=== PATIENT | male | born 1960 | race Caucasian/White ===

== ENCOUNTER 2017-07-06 08:02 | Emergency (ER) | payer MEDICARE ==
[~2017-07-06] VITALS: Ht 188 cm; Wt 76.6 kg
[2017-07-06] MEDS ORDERED: SODIUM CHLORIDE FLUSH 10ML SYR IVF ONE (08:30)
[2017-07-06] MEDS ORDERED: ONDANSETRON 2MG/ML, 2ML IVPush ONE (08:30)
[2017-07-06] MEDS ORDERED: MORPHINE SULFATE 4 MG/ML, 1ML IVPush PRN (08:30)
[2017-07-06] MEDS ORDERED: SODIUM CHLORIDE 0.9% 1,000ML IVBOLUS ONE (08:30)
[2017-07-06 08:40] LABS: HEMATOCRIT 39.9 % (39.2-51.8); HEMOGLOBIN 13.3 g/dL (13.7-18.0); WHITE BLOOD COUNT 8.3 x10^3/uL (3.4-10)
[2017-07-06 08:51] LABS: BLOOD UREA NITROGEN 14 mg/dL (7-18)
[2017-07-06] MEDS ORDERED: DIPH,PERTUSS(ACELL),TET VAC/PF 0.5 ML IM-VACC ONE ×2 (09:30→10:02)
[2017-07-06] MEDS ORDERED: CLINDAMYCIN PMX 900MG/50ML 50 ML IV ONE (09:30)
[2017-07-06] MEDS ORDERED: morphine SULFATE 10 MG/ML, 1ML ONE (10:01)
[2017-07-06] MEDS ORDERED: ONDANSETRON 2MG/ML, 2ML ONE (10:01)
[2017-07-06] MEDS ORDERED: CLINDAMYCIN PMX 900MG/50ML 50 ML ONE (10:02)
[2017-07-06 12:24] VITALS: BP 148/101
== END 2017-07-06 12:27 ==
LOC: ED 08:19
DX: L03.113 Cellulitis of right upper limb (principal)
CPT/HCPCS: 36415; 73130; 80048; 82040; 85025; 90471; 90715; 96365; 96375; 99285; J2405; J7030

== ENCOUNTER 2017-07-07 18:23 | Emergency (ER) | payer MEDICARE ==
[~2017-07-07] VITALS: Ht 188 cm; Wt 75.0 kg
[2017-07-07 18:30] VITALS: BP 156/83
[2017-07-07] MEDS ORDERED: CEFAZOLIN 1,000 MG IM ONE (19:00)
[2017-07-07] MEDS ORDERED: HYDROcodone/APAP 5/325 TABLET PO ONE (19:00)
[2017-07-07] MEDS ORDERED: CEFTRIAXONE 1,000 MG ONE (19:04)
[2017-07-07] MEDS ORDERED: CEFAZOLIN 1,000 MG ONE (19:07)
[2017-07-07] MEDS ORDERED: HYDROcodone/APAP 5/325 TABLET ONE (19:07)
== END 2017-07-07 20:41 | disposition home or self-care (01) ==
LOC: ED 18:41
DX: L03.113 Cellulitis of right upper limb (principal); G89.11 Acute pain due to trauma; W22.8XXA Striking against or struck by other objects, initial encounter; Y93.89 Activity, other specified; Y92.488 Other paved roadways as the place of occurrence of the external cause; Y99.8 Other external cause status
CPT/HCPCS: 96372; 99283; J0690

== ENCOUNTER 2017-08-17 12:48 | Emergency (ER) | payer MEDICARE ==
[~2017-08-17] VITALS: Ht 188 cm; Wt 78.2 kg
[2017-08-17] MEDS ORDERED: HYDROmorphone 2 MG/ML, 1ML ONE (14:38)
[2017-08-17] MEDS ORDERED: ONDANSETRON 2MG/ML, 2ML ONE (14:38)
[2017-08-17 15:00] LABS: BASOPHILS # (AUTO) 0.08 x10^3/uL (0-0.1); BASOPHILS % (AUTO) 1 % (0-1); EOSINOPHILS % (AUTO) 5 % (1-7); HCT (SEDRATE) 40.7 % (39.2-51.8); LYMPHOCYTES # (AUTO) 2.64 x10^3/uL (1-3.4); LYMPHOCYTES % (AUTO) 29 % (22-44); MD NO; MEAN CORPUSCULAR HEMOGLOBIN 30.7 pg (27.5-34.5); MEAN CORPUSCULAR HGB CONC 33.1 g/dL (33.2-36.2); MEAN CORPUSCULAR VOLUME 92.7 fL (81-97); MEAN PLATELET VOLUME 7.8 fL (7.4-10.4); MONOCYTES # (AUTO) 0.78 x10^3/uL (0.2-0.8); MONOCYTES % (AUTO) 9 % (2-9); NEUTROPHILS # (AUTO) 5.08 x10^3/uL (1.8-6.8); NEUTROPHILS % (AUTO) 57 % (42-75); PLATELET COUNT 295 x10^3/uL (130-400); RED BLOOD COUNT 4.39 x10^6/uL (4.38-5.82); RED CELL DISTRIBUTION WIDTH 14.6 % (9.4-14.8)
[2017-08-17] MEDS ORDERED: SODIUM CHLORIDE FLUSH 10ML SYR IVF ONE (15:00)
[2017-08-17] MEDS ORDERED: DIAZEPAM 5 MG/ML, 2ML IVPush ONE (15:00)
[2017-08-17] MEDS ORDERED: ONDANSETRON 2MG/ML, 2ML IVPush ONE (15:00)
[2017-08-17] MEDS ORDERED: HYDROmorphone 1 MG/ML, 1ML IVPush PRN (15:00)
[2017-08-17 15:07] LABS: ALBUMIN 3.4 g/dL (3.4-5.0); ANION GAP 6 mmol/L (5-15); CALCIUM 8.6 mg/dL (8.5-10.1); CHLORIDE 109 mmol/L (98-107); CREATININE 0.88 mg/dL (0.7-1.3)
[2017-08-17 15:41] LABS: SEDIMENTATION RATE 24 mm/hr (0-10)
[2017-08-17] MEDS ORDERED: GADOBUTROL 7.5 MMOL/7.5 ML PFS ONE (16:11)
[2017-08-17 17:40] VITALS: BP 120/85
== END 2017-08-17 17:53 | disposition home or self-care (01) ==
LOC: ED 14:37
DX: S39.012A Strain of muscle, fascia and tendon of lower back, initial encounter (principal); F17.200 Nicotine dependence, unspecified, uncomplicated; X58.XXXA Exposure to other specified factors, initial encounter; Y93.89 Activity, other specified; Y92.89 Other specified places as the place of occurrence of the external cause; Y99.8 Other external cause status
CPT/HCPCS: 36415; 72158; 80048; 82040; 83605; 85025; 85651; 96374; 96375; 99285; A9585; J1170; J2405; J3360

== ENCOUNTER 2017-09-06 20:25 | Emergency (ER) | payer MEDICARE ==
[~2017-09-06] VITALS: Ht 188 cm; Wt 77.2 kg
[2017-09-06 20:53] VITALS: BP 144/95
== END 2017-09-06 22:10 | disposition home or self-care (01) ==
LOC: ED 20:39
DX: F32.9 Major depressive disorder, single episode, unspecified (principal); F19.14 Other psychoactive substance abuse with psychoactive substance-induced mood disorder; F12.10 Cannabis abuse, uncomplicated; F15.10 Other stimulant abuse, uncomplicated; F17.200 Nicotine dependence, unspecified, uncomplicated
CPT/HCPCS: 99284

== ENCOUNTER 2017-10-14 23:31 | Emergency (ER) | payer MEDICARE ==
[~2017-10-14] VITALS: Ht 188 cm; Wt 75.0 kg
[2017-10-15] MEDS ORDERED: LORazepam 2 MG/ML, 1ML IM ONE
[2017-10-15] MEDS ORDERED: LORazepam 2 MG/ML, 1ML ONE (00:10)
[2017-10-15 01:25] VITALS: BP 110/62
== END 2017-10-15 02:20 | disposition home or self-care (01) ==
LOC: ED 23:55
DX: F11.23 Opioid dependence with withdrawal (principal); I10 Essential (primary) hypertension
CPT/HCPCS: 96372; 99283; J2060

== ENCOUNTER 2018-04-22 19:22 | Emergency (ER) | payer MEDICARE ==
[~2018-04-22] VITALS: Ht 182.9 cm; Wt 78.9 kg
[2018-04-22 19:30] VITALS: BP 168/98
== END 2018-04-22 21:12 | disposition home or self-care (01) ==
LOC: ED 20:45
DX: F31.9 Bipolar disorder, unspecified (principal); I10 Essential (primary) hypertension; Z76.0 Encounter for issue of repeat prescription
CPT/HCPCS: 99283

== ENCOUNTER 2018-07-10 16:30 | Emergency (ER) | payer MEDICARE ==
[~2018-07-10] VITALS: Ht 182.9 cm; Wt 78.0 kg
[2018-07-10 17:43] LABS: BASOPHILS # (AUTO) 0.04 x10^3/uL (0-0.1); BASOPHILS % (AUTO) 1 % (0-1); EOSINOPHILS # (AUTO) 0.11 x10^3/uL (0-0.4); EOSINOPHILS % (AUTO) 1 % (1-7); LYMPHOCYTES % (AUTO) 6 % (22-44); MD NO; MEAN CORPUSCULAR HEMOGLOBIN 30.6 pg (27.5-34.5); MEAN CORPUSCULAR HGB CONC 33.5 g/dL (33.2-36.2); MEAN CORPUSCULAR VOLUME 91.4 fL (81-97); MONOCYTES # (AUTO) 0.55 x10^3/uL (0.2-0.8); MONOCYTES % (AUTO) 6 % (2-9); NEUTROPHILS # (AUTO) 7.81 x10^3/uL (1.8-6.8); NEUTROPHILS % (AUTO) 87 % (42-75); PLATELET COUNT 211 x10^3/uL (130-400); RED BLOOD COUNT 4.17 x10^6/uL (4.38-5.82); RED CELL DISTRIBUTION WIDTH 13.2 % (9.4-14.8)
[2018-07-10 17:50] LABS: ALANINE AMINOTRANSFERASE 21 U/L (12-78); ALBUMIN 3.4 g/dL (3.4-5.0); ANION GAP 7 mmol/L (5-15); CALCIUM 8.7 mg/dL (8.5-10.1); CHLORIDE 108 mmol/L (98-107)
[2018-07-10 17:52] LABS: ALKALINE PHOSPHATASE 76 U/L (45-117); BILIRUBIN,TOTAL 0.6 mg/dL (0.2-1.0); TOTAL PROTEIN 7.9 g/dL (6.4-8.2)
[2018-07-10] MEDS ORDERED: ACETAMINOPHEN 500 MG TABLET ONE (17:57)
[2018-07-10] MEDS ORDERED: SODIUM CHLORIDE FLUSH 10ML SYR IVF ONE (18:00)
[2018-07-10] MEDS ORDERED: SODIUM CHLORIDE 0.9% 1,000ML IVBOLUS ONE (18:00)
[2018-07-10] MEDS ORDERED: ACETAMINOPHEN 500 MG TABLET PO ONE (18:00)
[2018-07-10 18:20] LABS: RAPID INFLUENZA A Negative (Negative); RAPID INFLUENZA B Negative (Negative)
[2018-07-10 19:41] LABS: MICROSCOPIC NOT IND
[2018-07-10 19:43] LABS: CULTURE INDICATED? NO
[2018-07-10 20:11] VITALS: BP 132/76
[2018-07-11] MEDS ORDERED: LITH600C PO (17:05)
[2018-07-11] MEDS ORDERED: TRAZ-136 PO (17:05)
[2018-07-11] MEDS ORDERED: MIRT45TA3 PO (17:05)
[2018-07-11] MEDS ORDERED: melatonin PO (17:05)
[2018-07-11] MEDS ORDERED: wellbutrin PO (17:05)
== END 2018-07-10 20:13 | disposition home or self-care (01) ==
LOC: ED 19:40
DX: K52.9 Noninfective gastroenteritis and colitis, unspecified (principal); E86.0 Dehydration
CPT/HCPCS: 36415; 71046; 80053; 81003; 83605; 85025; 87040; 87400; 96360; 99284; J7030

== ENCOUNTER 2018-07-11 16:13 | Inpatient (IN) | payer MEDICARE ==
[~2018-07-11] VITALS: Ht 182.9 cm; Wt 72.0 kg
[2018-07-11] MEDS ORDERED: ACETAMINOPHEN 325 MG TABLET PO ONE (17:00)
[2018-07-11] MEDS ORDERED: ACETAMINOPHEN 325 MG TABLET ONE (17:00)
[2018-07-11] MEDS ORDERED: MIRT45TA3 PO (17:05)
[2018-07-11] MEDS ORDERED: LITH600C PO (17:05)
[2018-07-11] MEDS ORDERED: melatonin PO (17:05)
[2018-07-11] MEDS ORDERED: TRAZ50TA66 PO (17:05)
[2018-07-11] MEDS ORDERED: wellbutrin PO (17:05)
[2018-07-11 17:28] LABS: BASOPHILS # (AUTO) 0.03 x10^3/uL (0-0.1); BASOPHILS % (AUTO) 1 % (0-1); EOSINOPHILS # (AUTO) 0.34 x10^3/uL (0-0.4); EOSINOPHILS % (AUTO) 7 % (1-7); LYMPHOCYTES # (AUTO) 1.66 x10^3/uL (1-3.4); LYMPHOCYTES % (AUTO) 34 % (22-44); MD NO; MEAN CORPUSCULAR HEMOGLOBIN 30.7 pg (27.5-34.5); MEAN CORPUSCULAR HGB CONC 33.5 g/dL (33.2-36.2); MEAN CORPUSCULAR VOLUME 91.9 fL (81-97); MEAN PLATELET VOLUME 8.2 fL (7.4-10.4); MONOCYTES # (AUTO) 0.72 x10^3/uL (0.2-0.8); MONOCYTES % (AUTO) 15 % (2-9); NEUTROPHILS # (AUTO) 2.18 x10^3/uL (1.8-6.8); NEUTROPHILS % (AUTO) 44 % (42-75); PLATELET COUNT 182 x10^3/uL (130-400); RED BLOOD COUNT 4.15 x10^6/uL (4.38-5.82); RED CELL DISTRIBUTION WIDTH 13.7 % (9.4-14.8)
[2018-07-11 17:35] LABS: ALBUMIN 3.2 g/dL (3.4-5.0); ANION GAP 8 mmol/L (5-15); CALCIUM 8.3 mg/dL (8.5-10.1); CHLORIDE 109 mmol/L (98-107); CREATININE 0.79 mg/dL (0.7-1.3)
[2018-07-11] MEDS ORDERED: CEFTRIAXONE 1,000 MG in SODIUM CHLORIDE 0.9% 50 ML IVPB ONE (18:00)
[2018-07-11] MEDS ORDERED: VANCOMYCIN PER PHARMACY MC ONE (18:00)
[2018-07-11] MEDS ORDERED: CEFTRIAXONE PMX 1GM/50ML 50 ML ONE (18:19)
[2018-07-11] MEDS ORDERED: VANCOMYCIN 1,400 MG in SODIUM CHLORIDE 0.9% 250 ML IV ONE (18:30)
[2018-07-11] MEDS ORDERED: PHARMACOKINETIC CONSULTATION MC ONE ×2 (18:30→21:00)
[2018-07-11] MEDS ORDERED: DOCUSATE 100 MG CAPSULE PO PRN (19:30)
[2018-07-11] MEDS ORDERED: ONDANSETRON ODT 4 MG PO PRN (19:30)
[2018-07-11] MEDS ORDERED: VANCOMYCIN PER PHARMACY MC PRN (19:30)
[2018-07-11] MEDS ORDERED: ACETAMINOPHEN 325 MG TABLET PO PRN (19:30)
[2018-07-11 20:41] VITALS: BP 122/67
[2018-07-11] MEDS ORDERED: PHARMACOKINETIC MONITORING MC PRN (21:00)
[2018-07-11] MEDS: VANCOMYCIN 1,400 MG in SODIUM CHLORIDE 0.9% 250 ML IV SCH (21:31)
[2018-07-11] MEDS: TRAZODONE 100MG TABLET PO SCH (21:35)
[2018-07-11] MEDS: LITHIUM CARBONATE 300 MG CAPSULE PO SCH (21:36)
[2018-07-11] MEDS: MIRTAZAPINE 15 MG TABLET PO SCH (23:32)
[2018-07-12 02:28] LABS: CLOSTRIDIUM DIFFICILE ANTIGEN NEGATIVE; CLOSTRIDIUM DIFFICILE TOXIN NEGATIVE (Negative)
[2018-07-12 03:24] VITALS: BP 126/84
[2018-07-12 05:42] LABS: BASOPHILS # (AUTO) 0.05 x10^3/uL (0-0.1); BASOPHILS % (AUTO) 1 % (0-1); EOSINOPHILS # (AUTO) 0.52 x10^3/uL (0-0.4); EOSINOPHILS % (AUTO) 7 % (1-7); LYMPHOCYTES # (AUTO) 1.58 x10^3/uL (1-3.4); LYMPHOCYTES % (AUTO) 22 % (22-44); MD NO; MEAN CORPUSCULAR HEMOGLOBIN 31.1 pg (27.5-34.5); MEAN CORPUSCULAR HGB CONC 33.6 g/dL (33.2-36.2); MEAN CORPUSCULAR VOLUME 92.7 fL (81-97); MEAN PLATELET VOLUME 8.8 fL (7.4-10.4); MONOCYTES # (AUTO) 0.88 x10^3/uL (0.2-0.8); MONOCYTES % (AUTO) 12 % (2-9); NEUTROPHILS # (AUTO) 4.15 x10^3/uL (1.8-6.8); NEUTROPHILS % (AUTO) 58 % (42-75); PLATELET COUNT 218 x10^3/uL (130-400); RED BLOOD COUNT 3.95 x10^6/uL (4.38-5.82); RED CELL DISTRIBUTION WIDTH 13.5 % (9.4-14.8)
[2018-07-12 05:50] LABS: CREATININE 0.73 mg/dL (0.7-1.3)
[2018-07-12 06:49] VITALS: BP 132/89
[2018-07-12] MEDS: LITHIUM CARBONATE 300 MG CAPSULE PO SCH ×2 (09:14→20:58)
[2018-07-12] MEDS: VANCOMYCIN 1,400 MG in SODIUM CHLORIDE 0.9% 250 ML IV SCH ×2 (09:14→20:58)
[2018-07-12] MEDS: BUPROPION 100 MG TABLET PO SCH (09:14)
[2018-07-12] MEDS: SODIUM CHLORIDE 0.9% 1,000 ML IV SCH ×2 (09:18→17:31)
[2018-07-12 13:17] VITALS: BP 119/74
[2018-07-12 17:30] LABS: AMPHETAMINE SCREEN, URINE Negative (Negative); BARBITURATE SCREEN, URINE Negative (Negative); BENZODIAZEPINE SCREEN, URINE Negative (Negative); CANNABINOID SCREEN, URINE Negative (Negative); COCAINE SCREEN, URINE Negative (Negative); METHADONE SCREEN, URINE Negative (Negative); OPIATE SCREEN, URINE Positive (Negative)
[2018-07-12 19:51] VITALS: BP 117/70
[2018-07-12] MEDS: TRAZODONE 100MG TABLET PO SCH (20:58)
[2018-07-12] MEDS: MIRTAZAPINE 15 MG TABLET PO SCH (20:58)
[2018-07-13] VITALS (8 sets, daily range): BP systolic 119–164; BP diastolic 61–110
[2018-07-13] MEDS: SODIUM CHLORIDE 0.9% 1,000 ML IV SCH ×2 (05:58→16:02)
[2018-07-13] MEDS: LITHIUM CARBONATE 300 MG CAPSULE PO SCH ×2 (09:12→20:32)
[2018-07-13] MEDS: BUPROPION 100 MG TABLET PO SCH (09:12)
[2018-07-13] MEDS: VANCOMYCIN 1,400 MG in SODIUM CHLORIDE 0.9% 250 ML IV SCH ×2 (09:12→20:39)
[2018-07-13] MEDS: TRAZODONE 100MG TABLET PO SCH (20:32)
[2018-07-13] MEDS: MIRTAZAPINE 15 MG TABLET PO SCH (20:32)
[2018-07-14] MEDS: LORazepam 2 MG/ML, 1ML IVPush PRN ×6 (00:28→22:00)
[2018-07-14] MEDS: SODIUM CHLORIDE 0.9% 1,000 ML IV SCH ×3 (02:10→20:45)
[2018-07-14 02:16] VITALS: BP 130/70
[2018-07-14 07:16] VITALS: BP 128/79
[2018-07-14 07:58] LABS: BASOPHILS # (AUTO) 0.03 x10^3/uL (0-0.1); BASOPHILS % (AUTO) 1 % (0-1); EOSINOPHILS # (AUTO) 0.52 x10^3/uL (0-0.4); EOSINOPHILS % (AUTO) 9 % (1-7); LYMPHOCYTES % (AUTO) 30 % (22-44); MD NO; MEAN CORPUSCULAR HEMOGLOBIN 30.6 pg (27.5-34.5); MEAN CORPUSCULAR HGB CONC 33.6 g/dL (33.2-36.2); MEAN PLATELET VOLUME 7.9 fL (7.4-10.4); MONOCYTES # (AUTO) 0.58 x10^3/uL (0.2-0.8); MONOCYTES % (AUTO) 10 % (2-9); NEUTROPHILS # (AUTO) 3.15 x10^3/uL (1.8-6.8); NEUTROPHILS % (AUTO) 52 % (42-75); PLATELET COUNT 221 x10^3/uL (130-400); RED BLOOD COUNT 3.96 x10^6/uL (4.38-5.82); RED CELL DISTRIBUTION WIDTH 13.2 % (9.4-14.8)
[2018-07-14 08:10] LABS: ANION GAP 8 mmol/L (5-15); CALCIUM 8.3 mg/dL (8.5-10.1); CHLORIDE 109 mmol/L (98-107); CREATININE 0.78 mg/dL (0.7-1.3)
[2018-07-14 08:11] LABS: ALBUMIN 2.8 g/dL (3.4-5.0)
[2018-07-14] MEDS: BUPROPION 100 MG TABLET PO SCH (08:59)
[2018-07-14] MEDS: LITHIUM CARBONATE 300 MG CAPSULE PO SCH ×2 (08:59→20:45)
[2018-07-14] MEDS: VANCOMYCIN 1,400 MG in SODIUM CHLORIDE 0.9% 250 ML IV SCH ×2 (09:06→20:45)
[2018-07-14 12:21] VITALS: BP 133/85
[2018-07-14 20:09] VITALS: BP 147/89
[2018-07-14] MEDS: TRAZODONE 100MG TABLET PO SCH (20:45)
[2018-07-14] MEDS: MIRTAZAPINE 15 MG TABLET PO SCH (20:45)
[2018-07-14] MEDS ORDERED: METHOCARBAMOL 750 MG TABLET PO PRN (22:30)
== END 2018-07-15 07:36 | disposition left against medical advice (07) | DRG 868 ==
LOC: ED 18:04 → EDIP 18:19 → 4NOR 20:10
PROVIDERS: ADMIT Internal Medicine; ATTEND Internal Medicine
DX: T80.29XA Infection following other infusion, transfusion and therapeutic injection, initial encounter (principal); R78.81 Bacteremia; F31.30 Bipolar disorder, current episode depressed, mild or moderate severity, unspecified; Z79.899 Other long term (current) drug therapy; I10 Essential (primary) hypertension; Z80.1 Family history of malignant neoplasm of trachea, bronchus and lung; Z86.14 Personal history of Methicillin resistant Staphylococcus aureus infection; Z87.891 Personal history of nicotine dependence; Z71.51 Drug abuse counseling and surveillance of drug abuser; Z53.21 Procedure and treatment not carried out due to patient leaving prior to being seen by health care provider; F11.10 Opioid abuse, uncomplicated; B95.62 Methicillin resistant Staphylococcus aureus infection as the cause of diseases classified elsewhere
CPT/HCPCS: 36415; 80048; 80069; 80202; 80307; 82040; 82565; 83605; 84145; 84520; 85025; 87040; 87324; 93306; 96365; 99285; G0378; J0696; J3370; J2060; J7030; J7050

== ENCOUNTER 2019-06-23 05:10 | Emergency (ER) | payer MEDICARE ==
[~2019-06-23] VITALS: Ht 188 cm; Wt 76.0 kg
[~2019-06-23 05:10] MED LIST: LITH600C PO; MIRT45TA3 PO; TRAZ50TA66 PO; melatonin PO; wellbutrin PO
[2019-06-23] MEDS ORDERED: hydrOXyzine 50MG TABLET ONE (05:56)
[2019-06-23 06:11] VITALS: BP 128/92
[2019-06-23 06:14] LABS: MICROSCOPIC NOT IND
[2019-06-23 06:17] LABS: CULTURE INDICATED? NO
[2019-06-23] MEDS ORDERED: BICILLIN-LA 2,400,000 UNITS/4 ML IM ONE (06:30)
--- NOTE | 2019-06-23 06:56 | NUR ---
REPORT RECEIVED FROM KONSTANTIN PEREIRA. PT GETTING DRESSED FOR DC. REFUSED MEDICATION- THIS RN EDUCATED ON IMPORTANCE OF RECEIVING MEDICATION AND ABILITY TO CALL ER FOR RESULTS IN THE NEXT FEW DAYS.
== END 2019-06-23 06:57 | disposition home or self-care (01) ==
LOC: ED 06:22
DX: A53.9 Syphilis, unspecified (principal); N50.9 Disorder of male genital organs, unspecified; I10 Essential (primary) hypertension; L03.818 Cellulitis of other sites; G89.29 Other chronic pain; F31.9 Bipolar disorder, unspecified; F17.210 Nicotine dependence, cigarettes, uncomplicated; F19.90 Other psychoactive substance use, unspecified, uncomplicated; Z59.0 Homelessness
CPT/HCPCS: 36415; 81003; 86592; 87491; 87591; 99283; Q0177

== ENCOUNTER 2019-11-05 18:02 | Emergency (ER) | payer MEDICARE ==
[~2019-11-05] VITALS: Ht 182.9 cm; Wt 78.0 kg
[2019-11-05 18:50] LABS: BASOPHILS # (AUTO) 0.01 x10^3/uL (0-0.1); BASOPHILS % (AUTO) 0 % (0-1); EOSINOPHILS # (AUTO) 0.41 x10^3/uL (0-0.4); EOSINOPHILS % (AUTO) 3 % (1-7); LYMPHOCYTES % (AUTO) 11 % (22-44); MD NO; MEAN CORPUSCULAR HEMOGLOBIN 31.1 pg (27.5-34.5); MEAN CORPUSCULAR HGB CONC 33.6 g/dL (33.2-36.2); MEAN CORPUSCULAR VOLUME 92.4 fL (81-97); MEAN PLATELET VOLUME 8.3 fL (7.4-10.4); MONOCYTES % (AUTO) 5 % (2-9); NEUTROPHILS # (AUTO) 10.39 x10^3/uL (1.8-6.8); NEUTROPHILS % (AUTO) 81 % (42-75); PLATELET COUNT 185 x10^3/uL (130-400); RED BLOOD COUNT 4.86 x10^6/uL (4.38-5.82); RED CELL DISTRIBUTION WIDTH 13.4 % (9.4-14.8)
[2019-11-05 18:57] LABS: ALANINE AMINOTRANSFERASE 18 U/L (12-78); ALBUMIN 3.7 g/dL (3.4-5.0); ANION GAP 6 mmol/L (5-15); CALCIUM 8.6 mg/dL (8.5-10.1); CHLORIDE 108 mmol/L (98-107); CREATININE 0.86 mg/dL (0.7-1.3)
[2019-11-05 19:00] LABS: ALKALINE PHOSPHATASE 65 U/L (45-117); BILIRUBIN,TOTAL 0.8 mg/dL (0.2-1.0); TOTAL PROTEIN 8.3 g/dL (6.4-8.2)
--- NOTE | 2019-11-05 19:11 | NUR ---
pt arrives to ed with abd pain, pt reports he does not feel well. [facility] is [facility]. pt reports abd pain in all quadrants. Pt denies trauma. pt connected to monitors and call light in reach. awaiting further orders. vss
[2019-11-05 19:52] VITALS: BP 101/72
== END 2019-11-05 19:54 | disposition home or self-care (01) ==
LOC: ED 19:10
DX: R10.33 Periumbilical pain (principal); R10.13 Epigastric pain; R11.0 Nausea; G89.29 Other chronic pain; I10 Essential (primary) hypertension; F17.210 Nicotine dependence, cigarettes, uncomplicated
CPT/HCPCS: 36415; 80053; 83690; 85025; 99283